=== PATIENT | male | born 1975 | race Caucasian/White ===

== ENCOUNTER 2023-03-28 19:06 | Emergency (ER) | payer MEDICAID, OTHER ==
[~2023-03-28] VITALS: Ht 177.8 cm; Wt 78.0 kg
[2023-03-28 19:09] VITALS: BP 107/74; PULSE 76; RESP 18; TEMP 98.2; O2SAT 98
[2023-03-28 19:36] LABS: BASOPHILS % 0.8 % (0.0-2.0); EOSINOPHILS % 4.7 % (0.0-5.0); HEMATOCRIT. 46.2 % (42.0-52.0); HEMOGLOBIN. 16.1 g/dL (14.0-18.0); LYMPHOCYTES % 18.6 % (20.0-50.0); MEAN CORPUSCULAR HEMOGLOBIN 33.6 pg (28.0-32.0); MEAN CORPUSCULAR VOLUME 96.3 fL (80.0-94.0); MEAN PLATELET VOLUME 10.5 fl (7.4-10.4); MONOCYTES % 8.5 % (2.0-8.0); NEUTROPHILS % 67.4 % (40.0-76.0); PLATELET 184 x1000/uL (130-400); RED CELL DISTRIBUTION WIDTH 12.9 % (11.6-14.6)
[2023-03-28 19:41] LABS: CHLORIDE 109 mEq/L (98-107)
[2023-03-29] MEDS ORDERED: ONDANSETRON HCL 4MG/2ML INJ IV STA (03:24)
[2023-03-29] MEDS ORDERED: FAMOTIDINE 20MG/2ML VIAL IV STA (03:24)
[2023-03-29] MEDS ORDERED: KETOROLAC 30MG/ML VIAL IV STA (03:43)
[2023-03-29 04:26] LABS: CLARITY URINE CLEAR (CLEAR); COLOR URINE YELLOW (YELLOW); KETONES URINE NEGATIVE (NEGATIVE); LEUKOCYTE ESTERASE URINE NEGATIVE (NEGATIVE); NITRITE URINE NEGATIVE (NEGATIVE); OCCULT BLOOD URINE NEGATIVE (NEGATIVE); PH URINE 5.5 (4.5-8.0); PROTEIN URINE TRACE (NEGATIVE); SPECIFIC GRAVITY URINE 1.029 (1.005-1.030)
[2023-03-29] MEDS ORDERED: IOHEXOL-300 100 ML BOTTLE ONE (05:57)
[2023-03-29] MEDS ORDERED: SODIUM CHLORIDE 0.9% 1,000 ML IV NR (06:30)
[2023-03-29] MEDS ORDERED: ONDANSETRON 4MG ODT PO SCH (06:54)
[2023-03-29] MEDS ORDERED: MORPHINE SULFATE 4 MG/ML CPJ (NOT FOR IM USE) IV SCH (07:00)
[2023-03-29] MEDS ORDERED: TRAM50TA3 MT (07:02)
[2023-03-29] MEDS ORDERED: DOCU-150 MT (07:02)
[2023-03-29] MEDS ORDERED: ONDA4TAB50 PO (07:02)
== END 2023-03-29 07:25 | disposition home or self-care (01) ==
LOC: ER 19:06
DX: R10.9 Unspecified abdominal pain (principal); K59.00 Constipation, unspecified; D16.9 Benign neoplasm of bone and articular cartilage, unspecified; J44.9 Chronic obstructive pulmonary disease, unspecified; E11.9 Type 2 diabetes mellitus without complications; I10 Essential (primary) hypertension
CPT/HCPCS: 80053; 83690; 85025; 36415; 99285; 81003; 74177; 96361; 96374; 96375; Q9967; Q0162; J3490; J1885; J2405; J2270; Z7610